=== PATIENT | male | born 2000 | race Caucasian/White ===

== ENCOUNTER 2025-09-13 09:30 | Outpatient (AMB) | payer OTHER, SELFPAY ==
--- NOTE | 2025-09-13 09:35 | A.OFFVISCC_ITS ---
Vital Signs 09/13/25 09:48 Height 6 ft Weight 192 lb BMI 26.0 BP 110/62 Pulse 106 H Pulse Oximetry (%) 96 Intake Visit Reasons: MAT Intake Allergies amoxicillin Allergy (Mild, Verified 09/13/25 09:50) Rash clavulanic acid (From Augmentin) Allergy (Mild, Verified 09/13/25 09:50) Rash HPI Comments Details: A 25 year old male presents for MAT intake r/t AUD. Reports no alcohol consumption since Thursday. Interested in starting on naltrexone and entering an IOP program. Lives at home with parents and girlfriend. The patient acknowledges taking an oxycodone tablet on Thursday which he reports was a leftover from a prescription r/t a surgical procedure. Review of Systems Const All systems reviewed & are unremarkable except as noted in HPI and below Physical Exam Vital Signs: Last Vital Signs Pulse 106 H 09/13/25 09:48 BP 110/62 09/13/25 09:48 Pulse Ox 96 09/13/25 09:48 BMI result Body Mass Index 26.0 Const General: cooperative Results AMB 14 Panel Urine Drug Screen Urine Marijuana (THC) Positive Last Edit by Carlos Daniels CMA on 5 09:57 Urine Cocaine Positive Last Edit by Carlos Daniels CMA on 09/13/25 09:57 Urine Morphine Negative Last Edit by Carlos Daniels CMA on 09/13/25 09:57 Urine Methamphetamine Negative Last Edit by Carlos Daniels CMA on 5 09:57 Urine Amphetamine Negative Last Edit by Carlos Daniels CMA on 09/13/25 09 :57 Urine Benzodiazepine Negative Last Edit by Carlos Daniels CMA on 09/13/25 09:57 Urine Barbiturates Negative Last Edit by Carlos Daniels CMA on 09/13/25 09:57 Urine Methadone Negative Last Edit by Carlos Daniels CMA on 09/13/25 09:5 7 Urine Buprenorphine Negative Last Edit by Carlos Daniels CMA on 09/13/25 09:57 Urine Tricyclic Antidepressant Negative Last Edit by Carlos Daniels CMA o n 09/13/25 09:57 Urine MDMA Negative Last Edit by Carlos Daniels CMA on 09/13/25 09:57 Urine Oxycodone Negative Last Edit by Carlos Daniels CMA on 09/13/25 09:5 7 Urine Phencyclidine Negative Last Edit by Carlos Daniels CMA on 09/13/25 09:57 Urine Propoxyphene Negative Last Edit by Carlos Daniels CMA on 09/13/25 09:57 Results Reviewed Results Reviewed: Laboratory Last Values POC Urine Buprenorphine Negative 09/13/25 09:52 POC Urine Morphine Negative 09/13/25 09:52 POC Urine Oxycodone Negative 09/13/25 09:52 POC Urine Methadone Negative 09/13/25 09:52 POC Urine Propoxyphene Negative 09/13/25 09:52 POC Urine Barbiturates Negative 09/13/25 09:52 POC U Tricyclic Antidpr Negative 09/13/25 09:52 POC Urine PCP Negative 09/13/25 09:52 POC Ur Amphetamines Negative 09/13/25 09:52 POC Ur Methamphetamine Negative 09/13/25 09:52 POC Urine MDMA Negative 09/13/25 09:52 POC Ur Benzodiazepine Negative 09/13/25 09:52 POC Urine Cocaine Positive 09/13/25 09:52 POC Ur Marijuana (THC) Positive 09/13/25 09:52 PFS Social History (Updated 09/13/25 @ 13:52 by SHOSHANA Leblanc) Household Members: Family Household Members Other:: Girlfriend Both parents involved: Yes Caregiver staying overnight: No Are you a primary home care companion to a significant other at home: No Do you presently have visiting nurse or other home services: No Assessment & Plan Assessment & Plan (1) Alcohol use disorder: Code(s): F10.90 - Alcohol use, unspecified, uncomplicated Category: Medical Plan The plan of care is to start on naltrexone 50 mg, 1/2 tablet for 3 days then one tablet daily. Folic acid 1 mg, and thiamine 100 mg daily. Education provided re: naltrexone, folic acid, thiamine , including purpose, general medication information, and side effects. T/w explained to patient not to take naltrexone with concurrent use of oxycodone due to risk of precipitated withdrawal symptom s. T/w reminded patient if symptoms of alcohol withdrawal occur follow up with nearest emergency department. Follow up in 1 month or sooner if needed. Orders: Orders AMB 14 Panel Urine Drug Screen Today Z51.81 - Encounter for therapeutic drug level monitoring Medications: New naltrexone Take 1/2 tablet for 3 days then one tablet daily 50 mg PO DAILY 30 tabs 1RF 30 days thiamine mononitrate (vit B1) Take 1 tablet daily 100 mg PO DAILY 30 tabs 2RF 30 days folic acid 1 tablet daily 1 mg PO DAILY 30 tabs 2RF 30 days Patient Instructions: - Start on naltrexone, folic acid, and thiamine as prescribed. - Do not take naltrexone concurrently with oxycodone due to risk for precipitated withdrawal symptoms. - If symptoms of alcohol withdrawal occur follow-up emergency department. - Follow up with [facility] program. - Follow-up in 1 month or sooner if needed. - Call with questions, concerns, or to report side effects/new onset of symptoms to [facility]. - The patient verbalized understanding and agreed with plan of care. MAT Intake Nursing Intake Reason for visit: MAT intake AUD Are you currently using?: Yes What are you taking?: Alcohol When was your last use?: Thursday09/10/25 How much?: 10-15 nips What is your source of income?: unemployed What is your current relationship status?: significant other Current PCP: Alannah YEN [facility] [place] Date of last visit: 09/11/25 Referral Source: PCP Substance Abuse History Substance Abuse History (includes route, frequency and quantity): Oxycodone product (Prescribed for shoulder surgery in 2023- took one leftover from surgery when I was drinking on Thursday ), Alcohol (First use age 13, problematic use began in 2020 - 10-15 nips per day), Marijuana (used occasionally) and Tobacco (nicotine vape ) Social History Domestic Violence concerns: none Children: 0 Do you have a support system?: yes, family and significant other, best friend Current mode of transportation?: self Where are you currently residing?: [place] LMP: NA IV Drug Use Have you ever shared needles?: No Have you ever belonged to a needle exchange program?: No Do you buy needles at a pharmacy?: No Have you ever overdosed?: No Number of lifetime overdoses: 0 Have you ever been hospitalized for an overdose?: No Was Naloxone administered?: Not applicable Recovery History Have you had any periods of recovery?: Yes What is your longest time in recovery?: 1 year from 04/08-04/09 When was the last time you were in recovery?: March 2025 Have you ever had inpatient treatment for your substance abuse disorder?: No Have you been in an inpatient detoxification program?: No Have you been in an inpatient Rehab/[place] house?: No Have you been in an outpatient Methadone Maintenance program?: No Have you been in an outpatient Suboxone Maintenance program?: No Have you been in an AA/NA support program?: No Have you had a Recovery Support Account Classification Clerk?: No Have you had Peer Support?: No Details: Has a ENTREPRENEURSHIP PROGRAM DIRECTOR through PCP that is helping arrange behavioral health support and possibly a PHP/IOP- was given support resources including [facility] and [facility]. Will follow up if needing peer recovery or [facility] referral Behavioral Health History Do you have a current provider? If so, who?: see above diagnosis: Severe anxiety, depression, possible OCD History of other addictive behavior: none History of inpatient psychiatric hospitalization? If so, how many? Most Recent? Where?: none History of self harming thoughts?: No Medical Conditions Endocarditis?: No Skin Infection: No Seizure related to withdrawal or overdose: No Head or brain injury: No Hepatitis B (if yes, have you been treated?): No Hepatitis C (if yes, have you been treated?): No HIV (if yes, have you been treated?): No TB (if yes, have you been treated?): No Other: No Legal History History of incarceration: No Currently on parole or probation: No Court mandated programs: No Pending court cases: Yes DCF involvement: No
[2025-09-13 09:48] VITALS: BP 110/62; PULSE 106; O2SAT 96; BMI 26.0
--- OUTSIDE RECORDS SUMMARY | 2025-09-13 11:17 | XMS_ITS | Encounter Summary ---
Author Organization [facility] Address [address] [place] [address] Phone Care Team Providers Care Workflow Developer Name Role Phone Parish Sales MD Primary Care Provider [phone] Reason for Visit * Reason Comments Med Refill Encounter Details Date Type Department Care Team (Late st Contact Info) Description 12/14/2019 Refill [facility] [place] [address] [place] [address] Annemarie Jaffe MD [address] [place], [place] [id number] Acne vulgaris Social History Tobacco Use Types Packs/Day Years Used Date Smoking Tobacco: Never Smokeless Tobacco: Never Comments:Never smoker. He va pes daily Alcohol Use Standard Drinks/Week Comments Yes 2 (1 standard drink = 0.6 oz pur e alcohol) Sex and Gender Information Value Date Recorded Sex Assigned at Not on file Legal Sex Male 4:56 PM EDT Gender Identity Not on file Sexual Orientation Not on file documented as of this encounter Plan of Treatment Not on file documented as of this encounter Visit Diagnoses Diagnosis Acne vulgaris Other acne documented in this encounter Care Teams Workflow Developer Relationship Specialty Start Date End Date Parish Sales MD [address] [place] [address] PCP - General Pediatrics 12/21/20 01/28/23 documented as of this encounter
--- OUTSIDE RECORDS SUMMARY | 2025-09-13 11:17 | XMS_ITS | Encounter Summary ---
Author Organization [facility] Address [address] [place] [address] Phone Care Team Providers Care Clinical Quality Analyst Name Role Phone Parish Sales MD Primary Care Provider [phone] Encounter Details Date Type Department Care Team (Late st Contact Info) Description 03/15/2010 Documentation [facility] [place] Family Medicine [address] [place] [address] Family Medicine, Physician [address] [place] [address] Social History Tobacco Use Types Packs/Day Years Used Date Smoking Tobacco: Never Assessed Sex and Gender Information Value Date Recorded Sex Assigned at Not on file Legal Sex Male 4:56 PM EDT Gender Identity Not on file Sexual Orientation Not on file documented as of this encounter Plan of Treatment Not on file documented as of this encounter Visit Diagnoses Not on filedocumented in this encounter Care Teams Clinical Quality Analyst Relationship Specialty Start Date End Date Parish Sales MD [address] [place] [address] PCP - General Pediatrics 12/21/20 01/28/23 documented as of this encounter
--- OUTSIDE RECORDS SUMMARY | 2025-09-13 11:17 | XMS_ITS | Encounter Summary ---
Author Organization [facility] Address [address] [place] [address] Phone Care Team Providers Care Pc Maintenance Technician Name Role Phone Parish Sales MD Primary Care Provider [phone] Encounter Details Date Type Department Care Team (Late st Contact Info) Description 11/28/2013 Documentation [facility] [place] [address] [place] [address] Family Medicine, Physician [address] [place] [address] Social History Tobacco Use Types Packs/Day Years [...] on filedocumented in this encounter Care Teams Pc Maintenance Technician Relationship Specialty Start Date End Date Parish Sales MD [address] [place] [address] PCP - General Pediatrics 12/21/20 01/28/23 documented as of this encounter
--- OUTSIDE RECORDS SUMMARY | 2025-09-13 11:17 | XMS_ITS | Encounter Summary ---
Author Organization [facility] Address [address] [place] [address] Phone Care Team Providers Care Precision Market Insights Name Role Phone Parish Sales MD Primary Care Provider [phone] Encounter Details Date Type Department Care Team (Late st Contact Info) Description 03/15/2010 Documentation [facility] [place] Family Medicine [address] [place] [address] Family Medicine, Physician [address] [place] [address] Social History Tobacco Use Types Packs/Day Years [...] on filedocumented in this encounter Care Teams [employer] Insights Relationship Specialty Start Date End Date Parish Sales MD [address] [place] [address] PCP - General Pediatrics 12/21/20 01/28/23 documented as of this encounter
--- OUTSIDE RECORDS SUMMARY | 2025-09-13 11:17 | XMS_ITS | Encounter Summary ---
Author Organization [facility] Address [address] [place] [address] Phone Care Team Providers Care Hand Stemmer Name Role Phone Parish Sales MD Primary Care Provider [phone] Encounter Details Date Type Department Care Team (Late st Contact Info) Description 11/25/2011 Documentation [facility] [place] [address] [place] [address] Family Medicine, Physician [address] [place] [address] Social History Tobacco Use Types Packs/Day Years [...] on filedocumented in this encounter Care Teams Hand Stemmer Relationship Specialty Start Date End Date Parish Sales MD [address] [place] [address] PCP - General Pediatrics 12/21/20 01/28/23 documented as of this encounter
--- OUTSIDE RECORDS SUMMARY | 2025-09-13 11:18 | XMS_ITS | Clinical Summary ---
Author Organization [facility] Address [address] [place] [address] Phone Care Team Providers Care Supervisor Cigar Making Machine Name Role Phone Unavailable Primary Care Provider Unavailabl e Allergies Active Allergy Reactions Criticality Noted Date Comments Amoxicillin 12/28/2017 Amoxicillin-Pot Clavulanate 12/28/19 18 Medications cetirizine (ZYRTEC ALLERGY) 10 MG tabletIndication s:Chronic seasonal allergic rhinitis, unspecified trigger Take 1 tablet (10 mg total) by mouth nightly as needed for allergies. 30 tablet 1 8 Active fluticasone (FLONASE) 50 MCG/ACT nasal sprayIndications :Chronic seasonal allergic rhinitis Administer 2 sprays into each nostril daily. 1 Units 6 9 Active pantoprazole 40 MG EC tabletIndication s:Eosinophilic esophagitis TAKE 1 TABLET BY MOUTH EVERY DAY 90 tablet 1 1 Active cloNIDine 0.1 MG tabletIndication s:Sleep disorder Take 2 tablets (0.2 mg total) by mouth nightly. 60 tablet 2 2 Active doxycycline 100 MG capsuleIndicatio ns:Acne vulgaris Take 1 capsule (100 mg total) by mouth 2 (two) times a day. 90 capsule 1 2 Active cloNIDine 0.1 MG tabletIndication s:Sleep disorder Take 2 tablets (0.2 mg total) by mouth nightly. 12 tablet 2 Active Active Problems Problem Noted Date Diagnosed Date Acne vulgaris 05/28/2018 Overview (05/28/2018): Doing well with tretinoin from dermatology. 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 Hypercholesterolemia 05/28/2018 Allergic rhinitis 05/12/2016 Eosinophilic esophagitis 09/13/2014 Assessment & Plan (05/28/2018 1:24 PM EDT): Responds to omeprazole. No GI f/U for a long time. 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 Immunizations Immunization Administration Dates Next Due DTaP 5 05/16/2004, 1,1999,09/12,1999 H1N1 09/14/2009 HPV, Quadrivalent 12/14/2012,08/12/2012,06/03/20 12 Hep A, ped/adol 08/24/2014,04/17/2011 Hep B, ped/adol 08/13/2000,1999,1999 Hib (PRP-T) 08/13/2000, 0,1999,07/18 IPV 05/16/2004, 1,1999,07/18 Influenza Split 08/25/2013, 2,07/25/2011,07/26 Influenza, injectable, quadrivalent 02/22/2016 Influenza, injectable, quadr ivalent, preservative free 07/17/2016,08/24/2014 Influenza, injectable, trivalent 08/10/2009,12/0 07/2008 MMR 05/16/2004,05/14/2000 Meningococcal B Trumenba 06/01/2019 Meningococcal Conj (Menactra) MCV4P 05/12/2016,0 05/15/2011 Pneumococcal Conjugate 11/19/2000,08/13/2000 Tdap 04/17/2011 Varicella 05/11/2008,05/14/2000 Family History Relation Name Status Comments Father Norm Father: Myocard ial infarction, Hyperlipidemia, Hypertension, Obesity Half-Brother 1 Jose Alive Half brother (M): Migraines Exercise Induced Asthma Half-Brother 2 Waqar Alive Half brother (P): Diabetes insipidus, Alive and well Half-Brother 3 Jordan Alive Half-Sister Gaby Half sister (M) : Exercised Induced Asthma, Depression Maternal Grandfather Materna l grandparent: Hypertension Maternal Grandmother Materna l grandmother: leg amputation Mother Darius Alive Mother: Alive a nd well Paternal Grandfather Paterroma l grandfather: Hypertension, smallbowel obstruction, Elevated cholesterol, Diabetes mellitus Social History Tobacco Use Types Packs/Day Years [...] on file Sexual Orientation Not on file Last Filed Vital Signs Vital Sign Reading Time Taken Comments Blood Pressure 121/76 06/01/2019 1:36 PM EDT Pulse 71 06/01/2019 1:36 PM EDT Temperature 36.7 C (98 F) 05/28/2018 1:17 PM EDT Respiratory Rate - - Oxygen Saturation - - Inhaled Oxygen Concentration - - Weight 78.8 kg (173 lb 12.8 oz) 06/01/2019 1:36 PM EDT Height 182.9 cm (6') 06/01/2019 1:36 PM EDT Body Mass Index 23.57 06/01/2019 1:36 PM EDT Plan of Treatment Health Maintenance Due Date Last Done Comments Syphilis Screening (consider for higher risk patients) 1999 Men B Vaccine (2 of 2 - Trum enba SCDM 2-dose series) 12/02/2019 06/01/2019 HIV Screening 06/06/2020 06/06/2019 Influenza Vaccines (#1) 2025 07/17/20 16, 02/22/2016, 08/24/2014, Additional history exists COVID-19 Vaccine (2024-2 6 season) 2025 04/10/2021, 03/20/2021 DTaP,Tdap,and Td Vaccines (8 - Td or Tdap) 08/15/2031 08/15/2021, 04/17/2011, 05/16/2004, Additional history exists HIB Vaccines Completed 08/13/2000, 07/18, 1999, Additional history exists Hepatitis B Vaccines Completed 08/13/2000, 1999, 1999 Pneumococcal Vaccine Completed 11/19/2000, 08/13/20 00 IPV Vaccines Completed 05/16/2004, 02/2001, 08/13/2000, Additional history exists MMR Vaccines Completed 05/16/2004, 05/14/2000 Varicella Vaccines Completed 05/11/2008, 05/14/2000 HPV Vaccines Completed 12/14/2012, 07/18, 06/03/2012 Hepatitis A Vaccines Completed 08/24/2014, 04/17/20 11 Meningococcal Vaccine Completed 05/12/2016 , 05/15/2011, 08/13/2000 Insurance [facility]
--- OUTSIDE RECORDS SUMMARY | 2025-09-13 11:18 | XMS_ITS | Encounter Summary ---
Author Organization [facility] Address [address] [place] [address] Phone Care Team Providers Care Parking Meter Collector Name Role Phone Parish Sales MD Primary Care Provider [phone] Encounter Details Date Type Department Care Team (Late st Contact Info) Description 07/02/2017 Conversion Encounter [facility] [place] [address] [place] [address] Social History Tobacco Use Types Packs/Day Years Used Date Smoking Tobacco: Never Comments:Never smoker Sex and Gender Information Value Date Recorded Sex Assigned at Not on file Legal Sex Male 4:56 PM EDT Gender Identity Not on file Sexual Orientation Not on file documented as of this encounter Plan of Treatment Not on file documented as of this encounter Visit Diagnoses Not on filedocumented in this encounter Care Teams Parking Meter Collector Relationship Specialty Start Date End Date Parish Sales MD [address] [place] [address] PCP - General Pediatrics 12/21/20 01/28/23 documented as of this encounter
--- OUTSIDE RECORDS SUMMARY | 2025-09-13 11:18 | XMS_ITS | Encounter Summary ---
Author Organization [facility] Address [address] [place] [address] Phone Care Team Providers Care Certified Registered Nurse Anesthetist Name Role Phone Parish Sales MD Primary Care Provider Encounter Details Date Type Department Care Team (Late st Contact Info) Description 08/26/2013 Documentation [facility] [place] [address] [place] [address] Family Medicine, Physician [address] [place] [address] Social History Tobacco Use Types Packs/Day Years [...] on filedocumented in this encounter Care Teams Certified Registered Nurse Anesthetist Relationship Specialty Start Date End Date Parish Sales MD [address] [place] [address] PCP - General Pediatrics 12/21/20 01/28/23 documented as of this encounter
--- OUTSIDE RECORDS SUMMARY | 2025-09-13 11:18 | XMS_ITS | Encounter Summary ---
Author Organization [facility] Address [address] [place] [address] Phone Care Team Providers Care Counselling Psychologist Name Role Phone Parish Sales MD Primary Care Provider [phone] Encounter Details Date Type Department Care Team (Late st Contact Info) Description 01/29/2011 Documentation [facility] [place] Family Medicine [address] [place] [address] Family Medicine, Physician [address] [place] [address] Social History Tobacco Use Types Packs/Day Years [...] on filedocumented in this encounter Care Teams Counselling Psychologist Relationship Specialty Start Date End Date Parish Sales MD [address] [place] [address] PCP - General Pediatrics 12/21/20 01/28/23 documented as of this encounter
--- OUTSIDE RECORDS SUMMARY | 2025-09-13 11:18 | XMS_ITS | Encounter Summary ---
Author Organization [facility] Address [address] [place] [address] Phone Care Team Providers Care Acetylene Torch Solderer Name Role Phone Parish Sales MD Primary Care Provider [phone] Encounter Details Date Type Department Care Team (Late st Contact Info) Description 07/11/2010 Documentation [facility] [place] [address] [place] [address] Family Medicine, Physician [address] [place] [address] Social History Tobacco Use Types Packs/Day Years [...] on filedocumented in this encounter Care Teams Acetylene Torch Solderer Relationship Specialty Start Date End Date Parish Sales MD [address] [place] [address] PCP - General Pediatrics 12/21/20 01/28/23 documented as of this encounter
--- OUTSIDE RECORDS SUMMARY | 2025-09-13 11:18 | XMS_ITS | Data Portability ---
Author Organization FARSHAD Starr daniel [address] Address [address] [place] [address] Care Team Providers Care Sorter Operator Name Role Phone TIKI SILVERMAN Primary Care Provider Assessment No assessment recorded. Plan of Treatment Reminders Order Date Submit Date Provider Last Modified By Organization Details Last Modified Time Details Appointments None recorded. Lab None recorded. Referral None recorded. Procedures None recorded. Surgeries None recorded. Imaging None recorded. Medication Orders clonidine HCl 0.1 mg tablet 2023 024 [facility]acy #[id number], [address] [place], [address], 19:41:24 Patient TargetsNo targets recorded. Patient Instructions Encounter Date Encounter Id Patient Instructions Last Modified By Organization Details Last Modified Time 09/02/2024 [id number] insomnia: care instructions [email or web address] Not available 09/02/2024 19:41:22 Take medications as directed. Follow up with Primary DR for recheck. Not available 09/02/2024 19:41:55 Reason for Referral None Reported. Problems Name Problem SNOMED Code Status Onset Date Resolution Date Notes Provider Name and Address Organization Details Recorded Time Insomnia 864096181 Active FARSHAD Ramirez 19:05:35 Problem Notes None recorded. Medical Equipment None Reported. Allergies Allergen ID Allergen Name Allergen Category Reaction Reaction Severity Criticality Documentation Date Start Date Code Code System Note Provider Name and Address Organization Details Recorded Time 9006047 amoxicill in medicatio n rash Not available Not available 09/02/2024 723 RxNorm FARSHAD Ramirez [facility] 19:04:12 [id number] Augmentin medicatio n rash Not available Not available 09/02/2024 13522 2 RxNorm FARSHAD Ramirez [facility] 19:04:31 Medications Name Sig Start Date Stop Date Status Note LastModified by Organization Details LastModified Time clonidine HCl 0.1 mg tablet Take 2 tablets as needed by oral route at bedtime for 21 days. 2023 active Not Available Not Available Not Avai lable pantoprazole 40 mg tablet,delayed release TAKE 1 TABLET BY MOUTH EVERY DAY active Not Available Not Available No t Available Vitals Date Recorded Body height Body mass index (BMI) Body weight Oxygen saturation Oxygen saturation in Arterial blood by Pulse oximetry Heart rate Respiratory rate Body temperature Systolic And Diastolic Provider Name and Address Organization Details Last Updated DateTime 182.88 cm 23.6 kg/m2 87844.0 7 g 97 % 97 % 83 /min 18 /min 98 [degF] 123/78 mm[Hg] Carlin Tan [facility] 19:03:08 Social History Question Answer Notes LastModified by Organizat ion Details LastModified Time Tobacco Smoking Status Current Every Day Smoker FARSHAD Ramirez [facility] 09/02/2024 19:06:41 Which Illicit Or Recreational Drugs Have You Used? Cannabis Information not available 09/02/2024 Have You Had A Flu Shot This Season? No Information not available 09/02/2024 If No, Would You Like A Flu Shot Today? No Information not available 09/02/2024 What Is Your Water Source? City Information not available 09/02/2024 What Is Your Heat Source? Gas Information not available 09/02/2024 What Is Your Relationship Status? Single Information not available 09/02/2024 Are You Passively Exposed To Smoke? No Information not available 09/02/2024 Have You Recently Traveled Abroad? No Information not available 09/02/2024 Sex: Unknown Functional Status Question Answer Note LastModified by Organizat ion Details LastModified Time Do you use any illicit or recreational drugs? Yes Information not available 09/02/2024 Do you or have you ever used any other forms of tobacco or nicotine? No Information not available 09/02/2024 Are you currently employed? Yes Information not available 09/02/2024 Mental Status None recorded. Family History Nothing Reported. Medical History No medical history recorded. Immunizations Vaccine Type Date Status Note Provider Nam e and Address Organization Details Recorded Time Influenza, split virus, quadrivalent, preservative 6 completed Carlin Recinos Durga null, [place] - [facility] 09/02/2024 19:03:43 meningococcal B, recombinant 9 completed Carlin Recinos Durga null, PA - [facility] 09/02/2024 19:03:43 IPV 1 completed Carlin Recinos Durga null, PA - [facility] 09/02/2024 19:03:43 IPV 4 completed Carlin Recinos Durga null, PA - [facility] 09/02/2024 19:03:43 IPV 9 completed Carlin Recinos Durga null, PA - [facility] 09/02/2024 19:03:43 IPV 9 completed Carlin Recinos Durga null, PA - [facility] 09/02/2024 19:03:43 MMR 0 completed Carlin Recinos Durga null, PA - [facility] 09/02/2024 19:03:43 MMR 4 completed Carlin Recinos Durga null, PA - [facility] 09/02/2024 19:03:43 COVID-19, mRNA, LNP-S, PF, 30 mcg/0.3 mL dose 1 completed Carlin Recinos Durga null, PA - [facility] 09/02/2024 19:03:43 COVID-19, mRNA, LNP-S, PF, 30 mcg/0.3 mL dose 1 completed Carlin Recinos Durga null, PA - [facility] 09/02/2024 19:03:43 Tdap 1 completed Carlin Recinos Durga null, PA - [facility] 09/02/2024 19:03:44 Tdap 1 completed Carlin Recinos Durga null, PA - [facility] 09/02/2024 19:03:44 varicella 8 completed Carlin Recinos Durga null, PA - [facility] 09/02/2024 19:03:44 varicella 0 completed Carlin Recinos Durga null, PA - [facility] 09/02/2024 19:03:44 TTaX-Ydp-JWC 0 completed Carlin Recinos Durga null, PA - [facility] 09/02/2024 19:03:44 JVkC-Sjj-NHH 9 completed Carlin Recinos Durga null, PA - [facility] 09/02/2024 19:03:44 PUrH-Jwx-TFZ 0 completed Carlin Recinos Durga null, PA - [facility] 09/02/2024 19:03:44 WWtY-Vrg-OGN 9 completed Carlin Recinos Durga null, PA - [facility] 09/02/2024 19:03:44 Novel igndenhhu-L3U6-12, preservative-free 9 completed Carlin Recinos Durga null, PA - [facility] 09/02/2024 19:03:44 HPV, quadrivalent 3 completed Carlin Recinos Durga null, PA - [facility] 09/02/2024 19:03:44 HPV, quadrivalent 2 completed Carlin Recinos Durga null, PA - [facility] 09/02/2024 19:03:44 HPV, quadrivalent 2 completed Carlin Recinos Durga null, PA - [facility] 09/02/2024 19:03:44 Hep B, adolescent or pediatric 0 completed Carlin Recinos Durga null, PA - [facility] 09/02/2024 19:03:44 Hep B, adolescent or pediatric 9 completed Carlin Recinos Durga null, PA - [facility] 09/02/2024 19:03:44 Hep B, adolescent or pediatric 0 completed Carlin Recinos Durga null, PA - [facility] 09/02/2024 19:03:44 Hep A, ped/adol, 2 dose 1 completed Carlin Recinos Durga null, PA - [facility] 09/02/2024 19:03:44 Hep A, ped/adol, 2 dose 4 completed Carlin Recinos Durga null, PA - [facility] 09/02/2024 19:03:44 meningococcal MCV4P 6 completed Carlin Recinos Durga null, PA - [facility] 09/02/2024 19:03:44 meningococcal MCV4P 1 completed Carlin Recinos Durga null, PA - [facility] 09/02/2024 19:03:44 meningococcal MCV4P 0 completed Carlin Recinos Durga null, PA - [facility] 09/02/2024 19:03:44 DTaP 1 completed Carlin Recinos Durga null, PA - [facility] 09/02/2024 19:03:44 DTaP 0 completed Carlin Recinos Durga null, PA - [facility] 09/02/2024 19:03:44 DTaP 4 completed Carlin Recinos Durga null, PA - [facility] 09/02/2024 19:03:44 DTaP 9 completed Carlin Recinos Durga null, PA - [facility] 09/02/2024 19:03:44 DTaP 9 completed Carlin Recinos Durga null, PA - [facility] 09/02/2024 19:03:44 Influenza, split virus, quadrivalent, PF 6 completed Carlin Recinos Durga null, PA - [facility] 09/02/2024 19:03:44 Past Encounters Encounter ID Performer Location Encounter Start Date Encounter Closed Date Diagnosis/Indication Diagnosis SNOMED-CT Code Diagnosis ICD10 Code Diagnosis IMO Codes Diagnosis Note [id number] [address] [place] [address] [phone] 10/06/2020 15:05:22 10/06/2020 17:29:35 [id number] [address] [place] [address] [phone] [id number] 12/06/2020 09:52:28 12/06/2020 11:09:16 [id number] [facility] CATHERINE [address] [place] [address] [phone] 09/02/2024 18:38:35 09/02/2024 19:42:35 Insomnia 423217059 G47.00 Health Concerns Section Related Observation LastModified by Organization Detai ls LastModified Time None Recorded Concern Status LastModified by Organization Details LastModified Time None Recorded Advance Directives Directive None Recorded Payers Insurance Date Sequence Insurance Name Policy Number Policy Yeboah Covered Member ID Yeboah Member ID Guarantor Name 09/02/2024 1 [facility] [id number] Bib Kwon [id number] Bib Kwon 09/02/2024 1 [facility] Bib Kwon [id number] Bib Kwon Notes Date Note Type Note Provider Name and Address Organization Details Recorded Time 09/02/2024 text/html [facility] reggie by [email or web address] y.o male pt with h.o ADHD induced insomnia presents here for med refill of Clonidine which he has been taking for 11 years. Pt was unable to get into his PCP today. Denies any complications FARSHAD CATHERINE [address] [place], [address], [place] - [facility] 09/02/2024 19:44:46
--- OUTSIDE RECORDS SUMMARY | 2025-09-13 11:18 | XMS_ITS | Encounter Summary ---
Author Organization [facility] Address [address] [place] [address] Phone Care Team Providers Care Medical Chemist Name Role Phone Parish Sales MD Primary Care Provider [phone] Reason for Visit * Reason Comments Med Refill Encounter Details Date Type Department Care Team (Late st Contact Info) Description 11/17/2017 Refill [facility] [place] [address] [place] [address] Ruben Landon MD [address] [place], [place] [id number] Acne vulgaris Social History Tobacco Use Types Packs/Day Years Used Date Smoking Tobacco: Never Comments:Never smoker Sex and Gender Information Value Date Recorded Sex Assigned at Not on file Legal Sex Male 4:56 PM EDT Gender Identity Not on file Sexual Orientation Not on file documented as of this encounter Miscellaneous Notes * Telephone Encounter - Alisia Pearson LPN - 11/17/2017 11:54 AM EST Pharm fax refill request Doxycycline 100mg. EH documented in this encounter Plan of Treatment Not on file documented as of this encounter Visit Diagnoses Diagnosis Acne vulgaris Other acne documented in this encounter Care Teams Medical Chemist Relationship Specialty Start Date End Date Parish Sales MD [address] [place] [address] PCP - General Pediatrics 12/21/20 01/28/23 documented as of this encounter
--- OUTSIDE RECORDS SUMMARY | 2025-09-13 11:18 | XMS_ITS | Encounter Summary ---
Author Organization [facility] Address [address] [place] [address] Phone Care Team Providers Care Package Handler Name Role Phone Parish Sales MD Primary Care Provider [phone] Reason for Visit * Reason Comments Med Refill Encounter Details Date Type Department Care Team (Late st Contact Info) Description 05/29/2018 Refill [facility] [place] [address] [place] [address] Ruben Landon MD [address] [place] [address] Acne vulgaris Social History Tobacco Use Types Packs/Day Years Used Date Smoking Tobacco: Never Smokeless Tobacco: Never Comments:Never smoker. He va pes daily Alcohol Use Standard Drinks/Week Comments No 0 (1 standard drink = 0.6 oz pur e alcohol) Sex and Gender Information Value Date Recorded Sex Assigned at Not on file Legal Sex Male 4:56 PM EDT Gender Identity Not on file Sexual Orientation Not on file documented as of this encounter Miscellaneous Notes * Telephone Encounter - Isabela Oscar LPN - 05/29/2018 12:04 PM EDT DOXYCYCLINE HYCLATE 100 MG CAP last pe 06/02 documented in this encounter Plan of Treatment Not on file documented as of this encounter Visit Diagnoses Diagnosis Acne vulgaris Other acne documented in this encounter Care Teams Package Handler Relationship Specialty Start Date End Date Parish Sales MD [address] [facility] [place] [address] PCP - General Pediatrics 12/21/20 01/28/23 documented as of this encounter
--- OUTSIDE RECORDS SUMMARY | 2025-09-13 11:18 | XMS_ITS | Encounter Summary ---
Author Organization [facility] Address [address] [place] [address] Phone Care Team Providers Care Life Claims Examiner Name Role Phone Parish Sales MD Primary Care Provider [phone] Encounter Details Date Type Department Care Team (Late st Contact Info) Description 01/30/2011 Documentation [facility] [place] [facility] [address] [place] [address] Family Medicine, Physician [address] [place] [address] Social History Tobacco Use Types Packs/Day Years [...] on filedocumented in this encounter Care Teams Life Claims Examiner Relationship Specialty Start Date End Date Parish Sales MD [address] [place] [address] PCP - General Pediatrics 12/21/20 01/28/23 documented as of this encounter
--- OUTSIDE RECORDS SUMMARY | 2025-09-13 11:18 | XMS_ITS | Encounter Summary ---
Author Organization [facility] Address [address] [place] [address] Phone Care Team Providers Care Kineseologist Name Role Phone Parish Sales MD Primary Care Provider [phone] Encounter Details Date Type Department Care Team (Late st Contact Info) Description 05/28/2010 Documentation [facility] [place] [address] [place] [address] Family Medicine, Physician [address] [place] [address] Social History Tobacco Use Types Packs/Day Years [...] on filedocumented in this encounter Care Teams Kineseologist Relationship Specialty Start Date End Date Parish Sales MD [address] [place] [address] PCP - General Pediatrics 12/21/20 01/28/23 documented as of this encounter
--- OUTSIDE RECORDS SUMMARY | 2025-09-13 11:18 | XMS_ITS | Encounter Summary ---
Author Organization [facility] Address [address] [place] [address] Phone Care Team Providers Care Dean Of Boys Name Role Phone Parish Sales MD Primary Care Provider [phone] Encounter Details Date Type Department Care Team (Late st Contact Info) Description 08/26/2013 Documentation [facility] [place] Family Medicine [address] [place] [address] Family Medicine, Physician [address] [place] [address] Social History Tobacco Use Types Packs/Day Years [...] on filedocumented in this encounter Care Teams Dean Of Boys Relationship Specialty Start Date End Date Parish Sales MD [address] [place] [address] PCP - General Pediatrics 12/21/20 01/28/23 documented as of this encounter
--- OUTSIDE RECORDS SUMMARY | 2025-09-13 11:18 | XMS_ITS | Encounter Summary ---
Author Organization [facility] Address [address] [place] [address] Phone Care Team Providers Care Business And Services Instructor Name Role Phone Parish Sales MD Primary Care Provider [phone] Encounter Details Date Type Department Care Team (Late st Contact Info) Description 02/05/2011 Documentation [facility] [place] [address] [place] [address] Family Medicine, Physician [address] [place] [address] Social History Tobacco Use Types Packs/Day Years [...] on filedocumented in this encounter Care Teams Business And Services Instructor Relationship Specialty Start Date End Date Parish Sales MD [address] [place] [address] PCP - General Pediatrics 12/21/20 01/28/23 documented as of this encounter
--- OUTSIDE RECORDS SUMMARY | 2025-09-13 11:18 | XMS_ITS | Encounter Summary ---
Author Organization [facility] Address [address] [place] [address] Phone Care Team Providers Care Electric Meter Tester Name Role Phone Parish Sales MD Primary Care Provider [phone] Reason for Visit * Reason Comments Med Refill Encounter Details Date Type Department Care Team (Late st Contact Info) Description 12/27/2017 Refill [facility] [place] [address] [place] [address] Ruben Landon MD [address] [place] [address] Acne vulgaris Social History Tobacco Use Types Packs/Day Years Used Date Smoking Tobacco: Never Comments:Never smoker Sex and Gender Information Value Date Recorded Sex Assigned at Not on file Legal Sex Male 4:56 PM EDT Gender Identity Not on file Sexual Orientation Not on file documented as of this encounter Miscellaneous Notes * Telephone Encounter - Ruben Landon MD - 01/20/2018 12:04 PM EST Mom states she doesn't need the refill * Telephone Encounter - Ryan Duong LPN - 12/28/2017 2:05 PM EST Pharm requesting script for doxycycline 0.1 mg. Last PE 06/24/17. documented in this encounter Plan of Treatment Not on file documented as of this encounter Visit Diagnoses Diagnosis Acne vulgaris Other acne documented in this encounter Care Teams Electric Meter Tester Relationship Specialty Start Date End Date Parish Sales MD [address] [facility] [place] [address] PCP - General Pediatrics 12/21/20 01/28/23 documented as of this encounter
== END 2025-09-13 10:45 | disposition home or self-care (01) ==
LOC: HO.HCC 09:31
PROVIDERS: Visit Provider Clinical Nurse Specialist Psychiatric/Mental Health
DX: F10.90 Alcohol use, unspecified, uncomplicated (principal); Z51.81 Encounter for therapeutic drug level monitoring
CPT/HCPCS: 99203

== ENCOUNTER → 2025-09-13 09:30 | Outpatient (BNVA) | payer SELFPAY | PROVIDERS: Visit Provider Clinical Nurse Specialist Psychiatric/Mental Health | DX: F10.90 Alcohol use, unspecified, uncomplicated (principal) | CPT/HCPCS: 80307 ==

== ENCOUNTER 2025-10-09 09:35 | Outpatient (AMB) | payer OTHER, SELFPAY ==
[2025-10-09 09:40] VITALS: BP 126/70; PULSE 100; O2SAT 97
--- NOTE | 2025-10-09 09:40 | A.OFFVIS_ITS ---
<Statement entered by Yessi Olea RN - 10/09/25 11:59> Bib requested a gymnastics coach or instructor and a referral to [facility]. Both referrals will be submitted for him. Vital Signs 10/09/25 09:40 BP 126/70 Pulse 100 Pulse Oximetry (%) 97 Intake Visit Reasons: MAT Allergies amoxicillin Allergy (Mild, Verified 10/09/25 09:40) Rash clavulanic acid (From Augmentin) Allergy (Mild, Verified 10/09/25 09:40) Rash HPI Comments Details: A 25-year-old male presents for a follow-up r/t AUD and reports 29 days of sobriety from alcohol with the assistance of naltrexone. Denies use of opiates, alcohol, and other substances with the exception vaping for nicotine intermittent use of cannabis. Engages in conversation re: looking forward to establishing care with mental health servicess to address symptoms anxiety. ON LICENSE OF [facility] Social History Household Members: Family Household Members Other:: Girlfriend Both parents involved: Yes Caregiver staying overnight: No Are you a primary md do resident urgent care to a significant other at home: No Do you presently have visiting nurse or other home services: No Review of Systems Const All systems reviewed & are unremarkable except as noted in HPI and below Physical Exam Vital Signs: Last Vital Signs Pulse 100 10/09/25 09:40 BP 126/70 10/09/25 09:40 Pulse Ox 97 10/09/25 09:40 Const General: cooperative Assessment & Plan Assessment & Plan (1) Alcohol use disorder: Code(s): F10.90 - Alcohol use, unspecified, uncomplicated Category: Medical Plan The plan of care is to continue with naltrexone tablets 50 mg, thiamine 100 mg, and folic acid 1 mg daily. almond blancher operator met and provided additional resources including a referral for a peer gymnastics coach or instructor. A referral will be sent to [facility] for mental services. Follow-up in 3 months or sooner if needed. Medications: Refilled naltrexone Take 1/2 tablet for 3 days then one tablet daily 50 mg PO DAILY 30 tabs 1RF 30 days Patient Instructions: - Continue with naltrexone tablets 50 mg, thiamine, and folic acid as prescribed. - Engage in risk reduction activities to minimize frequency and quantity of vaping and cannabis use. - Follow up with support services. - Follow-up in 3 months or sooner if needed. - Call with questions, concerns, or to report side effects/new onset of symptoms to [facility]. - The patient verbalized understanding and agreed with plan of care. Coding Level of Care Code Est Pt Level 3 (91505) Diagnoses Alcohol use disorder F10.90
--- OUTSIDE RECORDS SUMMARY | 2025-10-09 11:00 | XMS_ITS | Encounter Summary ---
Author Organization [facility] Address [address] [place] [address] Phone Care Team Providers Care Novelty Twister Tender Name Role Phone Parish Sales MD Primary Care Provider [phone] Encounter Details Date Type Department Care Team (Late st Contact Info) Description 03/15/2010 Documentation [facility] [place] Family Medicine [address] [place] [address] Family Medicine, Physician [address] [place] [address] Social History Tobacco Use Types Packs/Day Years [...] on filedocumented in this encounter Care Teams Novelty Twister Tender Relationship Specialty Start Date End Date Parish Sales MD [address] [place] [address] PCP - General Pediatrics 12/21/20 01/28/23 documented as of this encounter
--- OUTSIDE RECORDS SUMMARY | 2025-10-09 11:00 | XMS_ITS | Encounter Summary ---
Author Organization [facility] Address [address] [place] [address] Phone Care Team Providers Care Inspector Fibrous Wallboard Name Role Phone Parish Sales MD Primary Care Provider [phone] Encounter Details Date Type Department Care Team (Late st Contact Info) Description 11/28/2013 Documentation [place] [address] [place] [address] Family Medicine, Physician [address] [place] [address] Social History Tobacco Use Types Packs/Day Years [...] on filedocumented in this encounter Care Teams Inspector Fibrous Wallboard Relationship Specialty Start Date End Date Parish Sales MD [address] [place] [address] PCP - General Pediatrics 12/21/20 01/28/23 documented as of this encounter
--- OUTSIDE RECORDS SUMMARY | 2025-10-09 11:01 | XMS_ITS | Encounter Summary ---
Author Organization [facility] Address [address] [place] [address] Phone Care Team Providers Care Home Appliance Installer Name Role Phone Parish Sales MD Primary Care Provider [phone] Reason for Visit * Reason Comments Med Refill Encounter Details Date Type Department Care Team (Late st Contact Info) Description 11/17/2017 Refill [facility] [place] [address] [place] [address] Ruben Landon MD [address] [place], [place] [id number] Acne vulgaris Social History Tobacco Use Types [...] acne documented in this encounter Care Teams Home Appliance Installer Relationship Specialty Start Date End Date Parish Sales MD [address] [place] [address] PCP - General Pediatrics 12/21/20 01/28/23 documented as of this encounter
--- OUTSIDE RECORDS SUMMARY | 2025-10-09 11:01 | XMS_ITS | Encounter Summary ---
Author Organization [facility] Address [address] [place] [address] Phone Care Team Providers Care Beef Pluck Trimmer Name Role Phone Parish Sales MD Primary Care Provider [phone] Reason for Visit * Reason Comments Med Refill Encounter Details Date Type Department Care Team (Late st Contact Info) Description 12/27/2017 Refill [facility] [place] [address] [place] [address] Ruben Landon MD [address] [place] [address] Acne vulgaris Social History Tobacco Use Types [...] acne documented in this encounter Care Teams Beef Pluck Trimmer Relationship Specialty Start Date End Date Parish Sales MD [address] [facility] [place] [address] PCP - General Pediatrics 12/21/20 01/28/23 documented as of this encounter
--- OUTSIDE RECORDS SUMMARY | 2025-10-09 11:01 | XMS_ITS | Data Portability ---
Author Organization FARSHAD Starr daniel [address] Address [address] [place] [address] Care Team Providers Care Safety Deposit Boxes Custodian Name Role Phone TIKI SILVERMAN Primary Care Provider [phone] Assessment No assessment recorded. Plan of Treatment Reminders Order Date Submit Date Provider Last Modified By Organization Details Last Modified Time Details Appointments None recorded. Lab None recorded. Referral None recorded. Procedures None recorded. Surgeries None recorded. Imaging None recorded. Medication Orders clonidine HCl 0.1 mg tablet 2023 024 [facility] #[id number], [address] [place], [address], 19:41:24 Patient TargetsNo targets recorded. Patient Instructions Encounter Date Encounter Id Patient Instructions Last Modified By Organization Details Last Modified Time 09/02/2024 [id number] insomnia: care instructions [email or web address] Not available 09/02/2024 19:41:22 Take medications as directed. Follow up with Primary DR for recheck. [email or web address] Not available 09/02/2024 19:41:55 Reason for Referral None Reported. Problems Name Problem SNOMED Code Status Onset Date Resolution Date Notes Provider Name and Address Organization Details Recorded Time Insomnia 924142493 Active FARSHAD Ramirez 19:05:35 Problem Notes None recorded. Medical Equipment None Reported. Allergies Allergen ID Allergen Name Allergen Category Reaction Reaction Severity Criticality Documentation Date Start Date Code Code System Note Provider Name and Address Organization Details Recorded Time 6450710 amoxicill in medicatio n rash Not available Not available 09/02/2024 723 Rx[facility] FARSHAD Ramirez [facility] 19:04:12 [id number] Augmentin medicatio n rash Not available Not available 09/02/2024 05180 2 RxNorm FARSHAD Ramirez [facility] 19:04:31 Medications [...] mass index (BMI) Body weight Oxygen saturation Heart rate Respiratory rate Body temperature Systolic And Diastolic Provider Name and Address Organization Details Last Updated DateTime 182.88 cm 23.6 kg/m2 07137.0 7 g 97 % 83 /min 18 /min 98 [...] null, [place] - [facility] 09/02/2024 19:03:44 SOuO-Nse-YEV 0 completed Carlin Recinos Durga null, PA - [facility] 09/02/2024 19:03:44 RYrK-Pro-KTZ 9 completed Carlin Recinos Durga null, PA - [facility] 09/02/2024 19:03:44 UIwW-Fye-DMX 0 completed Carlin Recinos Durga null, PA - [facility] 09/02/2024 19:03:44 JFwE-Vdx-XUH 9 completed Carlin Recinos Durga null, PA - [facility] 09/02/2024 19:03:44 Novel [id number], preservative-free 9 completed Carlin Recinos Durga null, [...] Influenza, split virus, quadrivalent, PF 6 completed Carlni Recinos Durga null, PA - [facility] 09/02/2024 19:03:44 Past Encounters Encounter ID Performer Location Encounter Start Date Encounter Closed Date Diagnosis/Indication Diagnosis SNOMED-CT Code Diagnosis ICD10 Code Diagnosis IMO Codes Diagnosis Note [id number] [facility] [address] [place] [address] [phone] 10/06/2020 15:05:22 10/06/2020 17:29:35 [id number] [facility] [address] [place] [address] [id number] 12/06/2020 09:52:28 12/06/2020 11:09:16 [id number] FARSHAD CATHERINE [address] [place] [address] [phone] [id number] 09/02/2024 18:38:35 09/02/2024 19:42:35 Insomnia 503717324 G47.00 Health Concerns Section Related Observation LastModified by Organization Detai ls LastModified Time None Recorded Concern Status LastModified by Organization Details LastModified Time None Recorded Advance Directives Directive None Recorded Payers Insurance Date Sequence Insurance Name Policy Number Policy Yeboah Covered Member ID Yeboah Member ID Guarantor Name 09/02/2024 1 [facility] [id number] Bib Kwon [id number] Bib Kwon 09/02/2024 1 [facility] Bib Kwon [id number] Bib Kwon Notes Date Note Type Note Provider Name and Address Organization Details Recorded Time 09/02/2024 text/html [facility] InsomniaRepor reggie by [id number] y.o male pt with h.o ADHD induced insomnia presents here for med refill of Clonidine which he has been taking for 11 years. Pt was unable to get into his PCP today. Denies any complications FARSHAD CATHERINE [address] [place], [address], [place] - [facility] 09/02/2024 19:44:46
--- OUTSIDE RECORDS SUMMARY | 2025-10-09 11:01 | XMS_ITS | Encounter Summary ---
Author Organization [facility] Address [address] [place] [address] Phone Care Team Providers Care Systems Planner Name Role Phone Parish Sales MD Primary Care Provider [phone] Encounter Details Date Type Department Care Team (Late st Contact Info) Description 11/25/2011 Documentation [facility] [place] [address] [place] [address] Family Medicine, Physician [address] [place] [address] Social History Tobacco Use Types Packs/Day Years [...] on filedocumented in this encounter Care Teams Systems Planner Relationship Specialty Start Date End Date Parish Sales MD [address] [place] [address] PCP - General Pediatrics 12/21/20 01/28/23 documented as of this encounter
--- OUTSIDE RECORDS SUMMARY | 2025-10-09 11:01 | XMS_ITS | Encounter Summary ---
Author Organization [facility] Address [address] [place] [address] Phone Care Team Providers Care Edge Bonder Name Role Phone Parish Sales MD Primary Care Provider [phone] Encounter Details Date Type Department Care Team (Late st Contact Info) Description 01/29/2011 [place] [facility] [place] [address] [place] [address] Family Medicine, Physician [address] [place] [address] Social History Tobacco Use Types Packs/Day Years [...] on filedocumented in this encounter Care Teams Edge Bonder Relationship Specialty Start Date End Date Parish Sales MD [address] [place] [address] PCP - General Pediatrics 12/21/20 01/28/23 documented as of this encounter
--- OUTSIDE RECORDS SUMMARY | 2025-10-09 11:01 | XMS_ITS | Encounter Summary ---
Author Organization [facility] Address [address] [place] [address] Phone Care Team Providers Care Xerox Machine Assembler Name Role Phone Parish Sales MD Primary Care Provider [phone] Encounter Details Date Type Department Care Team (Late st Contact Info) Description 01/30/2011 Documentation [facility] [place] [address] [place] [address] Family Medicine, Physician [address] [place] [address] Social History Tobacco Use Types Packs/Day Years [...] on filedocumented in this encounter Care Teams Xerox Machine Assembler Relationship Specialty Start Date End Date Parish Sales MD [address] [place] [address] PCP - General Pediatrics 12/21/20 01/28/23 documented as of this encounter
--- OUTSIDE RECORDS SUMMARY | 2025-10-09 11:01 | XMS_ITS | Encounter Summary ---
Author Organization [facility] Address [address] [place] [address] Phone Care Team Providers Care Mailroom Supervisor Name Role Phone Parish Sales MD Primary Care Provider [phone] Encounter Details Date Type Department Care Team (Late st Contact Info) Description 07/11/2010 Documentation [facility] [place] [address] [place] [address] Family Medicine, Physician [address] [place] [address] Social History Tobacco Use Types Packs/Day Years [...] on filedocumented in this encounter Care Teams Mailroom Supervisor Relationship Specialty Start Date End Date Parish Sales MD [address] [place] [address] PCP - General Pediatrics 12/21/20 01/28/23 documented as of this encounter
--- OUTSIDE RECORDS SUMMARY | 2025-10-09 11:01 | XMS_ITS | Encounter Summary ---
Author Organization [facility] Address [address] [place] [address] Phone Care Team Providers Care Legal Services Professional Name Role Phone Parish Sales MD Primary Care Provider Encounter Details Date Type Department Care Team (Late st Contact Info) Description 08/26/2013 Documentation [facility] [place] [address] [place] [address] Family Medicine, Physician [address] [place] [address] Social History Tobacco Use Types Packs/Day Years [...] on filedocumented in this encounter Care Teams Legal Services Professional Relationship Specialty Start Date End Date Parish Sales MD [address] [place] [address] PCP - General Pediatrics 12/21/20 01/28/23 documented as of this encounter
--- OUTSIDE RECORDS SUMMARY | 2025-10-09 11:01 | XMS_ITS | Encounter Summary ---
Author Organization [facility] Address [address] [place] [address] Phone Care Team Providers Care Production Hardener Name Role Phone Parish Sales MD Primary Care Provider [phone] Encounter Details Date Type Department Care Team (Late st Contact Info) Description 03/15/2010 [place] [facility] [place] [address] [place] [address] Family Medicine, Physician [address] [place] [address] Social History Tobacco Use Types Packs/Day Years [...] on filedocumented in this encounter Care Teams Production Hardener Relationship Specialty Start Date End Date Parish Sales MD [address] [place] [address] PCP - General Pediatrics 12/21/20 01/28/23 documented as of this encounter
--- OUTSIDE RECORDS SUMMARY | 2025-10-09 11:01 | XMS_ITS | Encounter Summary ---
Author Organization [facility] Address [address] [place] [address] Phone Care Team Providers Care Hospital Medical Biller Name Role Phone Parish Sales MD Primary Care Provider [phone] Encounter Details Date Type Department Care Team (Late st Contact Info) Description 08/26/[address] [facility] [place] [address] [place] [address] Family Medicine, Physician [address] [place] [address] Social History Tobacco Use Types Packs/Day Years [...] on filedocumented in this encounter Care Teams Hospital Medical Biller Relationship Specialty Start Date End Date Parish Sales MD [address] [place] [address] PCP - General Pediatrics 12/21/20 01/28/23 documented as of this encounter
--- OUTSIDE RECORDS SUMMARY | 2025-10-09 11:01 | XMS_ITS | Encounter Summary ---
Author Organization [facility] Address [address] [place] [address] Phone Care Team Providers Care Community Association Manager Name Role Phone Parish Sales MD Primary Care Provider [phone] Reason for Visit * Reason Comments Med Refill Encounter Details Date Type Department Care Team (Late st Contact Info) Description 05/29/2018 Refill [facility] [place] [address] [place] [address] Ruben Landon MD [address] [place] [address] Acne vulgaris Social History Tobacco Use Types [...] acne documented in this encounter Care Teams Community Association Manager Relationship Specialty Start Date End Date Parish Sales MD [address] [facility] [place] [address] PCP - General Pediatrics 12/21/20 01/28/23 documented as of this encounter
--- OUTSIDE RECORDS SUMMARY | 2025-10-09 11:01 | XMS_ITS | Clinical Summary ---
Author Organization [facility] Address [address] [place] [address] Phone Care Team Providers Care Placement Specialist Name Role Phone Unavailable Primary Care Provider [...] Vaccine Completed 05/12/2016 , 05/15/2011, 08/13/2000 Insurance [facility]
--- OUTSIDE RECORDS SUMMARY | 2025-10-09 11:01 | XMS_ITS | Encounter Summary ---
Author Organization [facility] Address [address] [place] [address] Phone Care Team Providers Care Pricing Intern Name Role Phone Parish Sales MD Primary Care Provider [phone] Encounter Details Date Type Department Care Team (Late st Contact Info) Description 07/02/2017 Conversion Encounter [facility] [place] [address] [place] [address] Social History Tobacco Use Types Packs/Day Years [...] on filedocumented in this encounter Care Teams Pricing Intern Relationship Specialty Start Date End Date Parish Sales MD [address] [place] [address] PCP - General Pediatrics 12/21/20 01/28/23 documented as of this encounter
--- OUTSIDE RECORDS SUMMARY | 2025-10-09 11:01 | XMS_ITS | Encounter Summary ---
Author Organization [facility] Address [address] [place] [address] Phone Care Team Providers Care Sales Ledger Clerk Name Role Phone Parish Sales MD Primary Care Provider [phone] Encounter Details Date Type Department Care Team (Late st Contact Info) Description 02/05/2011 Documentation [facility] [place] [address] [place] [address] Family Medicine, Physician [address] [place] [address] Social History Tobacco Use Types Packs/Day Years [...] on filedocumented in this encounter Care Teams Sales Ledger Clerk Relationship Specialty Start Date End Date Parish Sales MD [address] [place] [address] PCP - General Pediatrics 12/21/20 01/28/23 documented as of this encounter
--- OUTSIDE RECORDS SUMMARY | 2025-10-09 11:01 | XMS_ITS | Encounter Summary ---
Author Organization [facility] Address [address] [place] [address] Phone Care Team Providers Care Assistant Manager Pt Name Role Phone Parish Sales MD Primary Care Provider [phone] Encounter Details Date Type Department Care Team (Late st Contact Info) Description 05/28/2010 Documentation [facility] [place] [address] [place] [address] Family Medicine, Physician [address] [place] [address] Social History Tobacco Use Types Packs/Day Years [...] on filedocumented in this encounter Care Teams Assistant Manager Pt Relationship Specialty Start Date End Date Parish Sales MD [address] [place] [address] PCP - General Pediatrics 12/21/20 01/28/23 documented as of this encounter
--- OUTSIDE RECORDS SUMMARY | 2025-10-09 11:01 | XMS_ITS | Encounter Summary ---
Author Organization [facility] Address [address] [place] [address] Phone Care Team Providers Care Supervisor [employer] Name Role Phone Parish Sales MD Primary Care Provider [phone] Reason for Visit * Reason Comments Med Refill Encounter Details Date Type Department Care Team (Late st Contact Info) Description 12/14/2019 Refill [facility] [place] [address] [place] [address] Annemarie Jaffe MD [address] [place], [place] [id number] Acne vulgaris Social History Tobacco Use Types [...] acne documented in this encounter Care Teams Supervisor [employer] Relationship Specialty Start Date End Date Parish Sales MD [address] [place] [address] PCP - General Pediatrics 12/21/20 01/28/23 documented as of this encounter
== END 2025-10-09 09:57 | disposition home or self-care (01) ==
PROVIDERS: Visit Provider Clinical Nurse Specialist Psychiatric/Mental Health
DX: F10.90 Alcohol use, unspecified, uncomplicated (principal)
CPT/HCPCS: 99213

== ENCOUNTER → 2025-10-09 09:35 | Outpatient (BNVA) | payer SELFPAY | PROVIDERS: Visit Provider Clinical Nurse Specialist Psychiatric/Mental Health | DX: F10.90 Alcohol use, unspecified, uncomplicated (principal) | CPT/HCPCS: 99212 ==